=== PATIENT | female | born 1970 | race Caucasian/White ===

== ENCOUNTER 2024-12-27 08:58 | Outpatient (AMB) | payer OTHER, SELFPAY ==
--- NOTE | 2024-12-27 09:06 | A.PHYSOV_ITS ---
Vital Signs 12/27/24 09:10 Height 5 ft 3 in Weight 218 lb BMI 38.6 Intake Visit Reasons: OREN REF-DEGENERATIVE CERVICAL SPINAL STENOSIS Intake Note: Patient is a 54 year old female here today for a new patient office visit. Patient has been referred for degenerative cervical spinal stenosis. 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 The neck pain began at the end of October and lasted for almost a week, initially accompanied by headaches and localized to the right side of the neck. The patient has a history of similar neck issues years ago, which were stress- related. An x-ray revealed cervical arthritis and degenerative disc disease, and the patient was prescribed anti-inflammatory medication for seven days, which alleviated the symptoms. The patient has previously engaged in physical therapy and child adolescent care for similar issues and currently experiences tightness in the neck but denies any radiation of pain into the arms. He denies any pain today. I reviewed the referring provider's no prior consultation. Pain Description - Onset: End of October, lasting almost a week - Quality: Tightness, initially accompanied by headaches - Location: Right side of the neck - Radiation: Denies radiation into arms - Exacerbating factors: Stress-related history - Relieving factors: Anti-inflammatory medication Results - Imaging: X-ray cervical spine December 03 impression: No acute fracture or dislocation cervical spine. The images were reviewed by me and I agree with the radiology report. [facility] Surgical History (Updated 12/27/24 @ 09:09 by Juanita Og MA) H/O shoulder surgery (Unknown) Social History (Updated 12/27/24 @ 09:10 by Juanita Og MA) Alcohol intake: current Alcohol intake frequency: does not drink Patient Tobacco Use Status: Never used Tobacco Current occupational status: employed Review of Systems Narrative Review of Systems - Musculoskeletal: Reports neck tightness, denies pain on palpation - Neurological: Denies numbness or weakness in arms Physical Exam Exam Exam: Physical Exam Cervical Spine: Examination of her cervical spine, there is no visible swelling or deformity. She is nontender to palpation. Full range of motion in all planes. Special Tests: Axial Compression test: Negative Spurlings test: Negative Lhermitte's sign is Negative Upper Extremities: Full range of motion bilateral upper extremities. 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 Neuro: Sensation: Intact to upper extremities bilateral to light touch Strength C5 (Elbow Flexion): 5/5 on the left and 5/5 on the right. C6 (Elbow Ext): 5/5 on the left and 5/5 on the right. C7 (Elbow Ext): 5/5 on the left and 5/5 on the right. C8 (Finger Flex): 5/5 on the left and 5/5 on the right. T1 (Finger Abd/Add): 5/5 on the left and 5/5 on the right. DTR: C5 (Biceps): Left 2 Right 2 C6 (Brachioradialis): Left 2 Right 2 C7 (Triceps): Left 2 Right 2 Bauman sign: Negative No pathologic clonus. No involuntary movement. Vital Signs: BMI result Body Mass Index 38.6 Assessment & Plan Assessment & Plan (1) Cervicalgia: Code(s): M54.2 - Cervicalgia Category: Medical (2) Cervical spondylosis: Code(s): M47.812 - Spondylosis without myelopathy or radiculopathy, cervical region Category: Medical (3) Cervical radiculopathy: Code(s): M54.12 - Radiculopathy, cervical region Category: Medical Plan Pain Management - Affect: No specific impact on mood discussed - Analgesia: Anti-inflammatory medication used, effective in symptom relief - Adverse Effects: None reported - Activities of Daily Living: No specific interference discussed - Aberrant Drug Related Behaviors: None reported Plan Patient was informed and verbally consented to the use of an ambient scribe for clinic note documentation during this visit. 1. Cervical Arthritis The patient was advised to continue with home exercises and consider physical therapy if symptoms persist. An MRI may be considered if symptoms worsen or persist beyond the typical duration of an exacerbation. 2. Degenerative Disc Disease The patient was informed about the nature of degenerative disc disease as a [id number] condition. Management includes physical therapy and home exercises, with an MRI as a potential follow-up if symptoms do not improve. She will continue her medications as prescribed. We discussed the benefits of proper nutrition and exercise to maintain a healthy body weight to improve longevity and function. We also discussed the benefits of proper lifting techniques, core strengthening and proper posture. Thank you for allowing me to participate in the care of your patient. Coding Level of Care Code Tele New Pt Level 3 (58268) Diagnoses Cervicalgia M54.2 Cervical spondylosis M47.812 Cervical radiculopathy M54.12
[2024-12-27 09:10] VITALS: BMI 38.6
== END 2024-12-27 09:55 | disposition home or self-care (01) ==
PROVIDERS: PCP Internal Medicine; Visit Provider Physician Assistant
DX: M54.2 Cervicalgia (principal); M47.812 Spondylosis without myelopathy or radiculopathy, cervical region; M54.12 Radiculopathy, cervical region
CPT/HCPCS: 99203